=== PATIENT | female | born 1970 | race Caucasian/White ===

== ENCOUNTER 2025-01-03 10:33 | Outpatient (CLI) | payer BC, SELFPAY ==
--- NOTE | ~2025-01-03 | CT_ITS ---
CT sinus wo con Ordering provider: Marc Smith M.D. History: . J32.0 - Chronic maxillary sinusitis . Comparison: None. Technique: Thin slice Scans CT of the paranasal sinuses was performed with coronal and sagittal refor matted images. No IV contrast. . Automated exposure control and iterative reconstruction technique w ere employed. The dose-length product was 386.65 mGy-cm. Findings: NASAL SEPTUM: Mild right nasal septal deviation. OSTEOMEATAL UNITS: Bilaterally patent. NASAL TURBINATES AND NASOPHARYNX: Normal. Rhonda bullosa the left middle turbinate. PARANASAL SINUSES: Well aerated. VISUALIZED MASTOIDS: Normal as visualized. BONES: Normal. SUPERFICIAL SOFT TISSUES/VISUALIZED BRAIN PARENCHYMA: Normal. IMPRESSION: Mild right nasal septal deviation. Reviewed, dictated and finalized at location A.
== END 2025-01-03 10:34 | disposition home or self-care (01) ==
LOC: GOSHIMG 10:33
PROVIDERS: PCP Nurse Practitioner Family; Visit Provider Otolaryngology
DX: J34.2 Deviated nasal septum (principal); J32.0 Chronic maxillary sinusitis; J32.2 Chronic ethmoidal sinusitis; K21.9 Gastro-esophageal reflux disease without esophagitis; J34.89 Other specified disorders of nose and nasal sinuses; J30.2 Other seasonal allergic rhinitis
CPT/HCPCS: 70486

== ENCOUNTER 2025-02-09 11:09 | Outpatient (CLI) | payer BC, SELFPAY ==
--- NOTE | ~2025-02-09 | CT_ITS ---
EXAMINATION: CT brain wo con DATE: 02/09/2025 11:24 INDICATION: Chronic headache TECHNIQUE: Computed tomography (CT) of the head was performed without intravenous contrast. Sagittal and coronal reconstructions were performed. The mA was adjusted according to patient size. Iterative reconstruction technique was employed. The dose-length product was 564.98 mGy-cm. COMPARISON: None FINDINGS: Small old lacunar infarct versus more likely prominent perivascular space along the inferior left bas al ganglia. No acute intracranial hemorrhage, acute infarction or abnormal extra axial fluid collecti on. Ventricles are normal and symmetric. No mass/mass effect. The orbits, paranasal sinuses and masto id air cells are normal. IMPRESSION: 1. Normal head CT. Reviewed, dictated and finalized at location A. IMPRESSION: 1. Normal head CT.
== END 2025-02-09 11:10 | disposition home or self-care (01) ==
PROVIDERS: PCP Nurse Practitioner Family
DX: G43.009 Migraine without aura, not intractable, without status migrainosus (principal); G44.40 Drug-induced headache, not elsewhere classified, not intractable; G47.33 Obstructive sleep apnea (adult) (pediatric)
CPT/HCPCS: 70450

== ENCOUNTER 2025-03-10 09:50 | Outpatient (CLI) | payer BC, SELFPAY ==
--- OUTSIDE RECORDS SUMMARY | 2009-05-10 10:00 | XMS_ITS | Continuity of Care Document ---
Author Organization [facility] Address [address] [place] [address] [address] [place] [address] Phone Care Team Providers Care Line Maintenance Supervisor Name Role Phone Campo OD, Gurjit Unavailable Unavailable Procedures Procedure Date Eye Exam & Treatment Refraction Eye Exam & Treatment Refraction Advance Directives Directive Yes / No Effective Date File Name No Information Encounters Encounter Description Practice Location Reason(s) For Visit Diagnoses Date Provider Providers Copied on Encounter [facility], [address] [place] [address] [address], [place], [place], [id number], [place] tel:[phone] [facility] No Information 8-200 9 Campo OD Gurjit. [address] [facility] [address] , [address], [place], [address], [place]. tel:[phone] [facility], [address] [place] [address] [address], [place], [place], [id number], tel:[phone] [facility] [place] No Information 6-200 7 Campo OD Gurjit. [address] [facility] [address], [address], [place], [address], [place]. tel:[phone] Family History Family Member Type Diagnosis Age At Onset No Information Payers Payer name Insurance type Covered constitution party ID Authoriza tion(s) No Information Social History Type Description Quantity Date Captured Comments Sex Female Smoking Status No Information Chief Complaint And Reason For Visit No Information Reason For Referral Reason For Referral No Information History Of Present Illness Encounter Date Complaint History Of Prese nt Illness No Information Functional Status Date Functional Assessmen t No Information Instructions Date Instruction Additional Infor mation No Information Assessments Type Assessment Date No Information Patient Care Teams Name Effective Dates (start - stop) Status Members No Information
--- OUTSIDE RECORDS SUMMARY | 2025-03-10 10:00 | XMS_ITS | Clinical Summary ---
Author Organization [facility] [employer] [facility] Address [address] [facility] [place] [address] Care Team Providers Care Frame Bender Name Role Phone Robert Aguillon MD Unavailable [phone] Unknown, Provider Primary Care Provider Unavaila ble Source Comments [facility],non-owned Affiliates and Associated Physician Practices is amultiple site organization consisting of ambulatory clinics and hospital sitesin [place], [place], [place] and [place]. This disclosure is being madepursuant to the Care Everywhere program and may not contain all information available regarding this patient. Last updated 18.[facility] [employer] [facility] Allergies Active Allergy Reactions Criticality Noted Date Comments Penicillins Rash Medium 12/25/2016 Sulfa Drugs Rash Medium 12/25/2016 Medications * Be aware that medications may not be up to date on this document. Alwaysverify current medications with the patient. Fexofenadine HCl (MOUNIKA PO) Active zolpidem (AMBIEN) 10 MG tablet Take 10 mg by mouth nightly as needed for Insomnia Active multivitamin daily (THERAGRAN) tablet Take 1 Tab by mouth daily with food Active vitamin D3 (D 1000) (25 MCG) 1000 UNIT capsule Take 1 (one) capsule by mouth once daily Active fluticasone propionate (Flonase) 50 MCG/ACT nasal spray 1 as needed (50 mcg/actuat) Active metFORMIN (Glucophage) 1000 MG tablet Take 1 (one) tablet by mouth 2 times daily Active Ozempic, 2 MG/DOSE, 8 MG/3ML pen ADMINISTER 2 MG UNDER THE SKIN WEEKLY Active ferrous gluconate 324 (38 Fe) MG tablet Take 1 (one) tablet by mouth once daily Active B Qcgmyrr-U-Jspk c Acid (vitamin B complex with C) Take 1 (one) tablet by mouth once daily Active SUMAtriptan (Imitrex) 100 MG tabletIndicati ons:Chronic daily headache,Rebou nd headache,Migra ine without aura and without status migrainosus, not intractable,Si nus headache Take medication at the onset of migraine, may repeat in 2 hours, no more than 200 mg in 24 hrs 9 tablet 4 5 Active gabapentin (Neurontin) 100 MG capsuleIndicat ions:Chronic daily headache,Rebou nd headache,Migra ine without aura and without status migrainosus, not intractable,Si nus headache Take 2 (two) capsules by mouth 2 times daily 120 capsule 4 5 Active gabapentin (Neurontin) 100 MG capsuleIndicat ions:Chronic daily headache,Rebou nd headache,Migra ine without aura and without status migrainosus, not intractable,Si nus headache Take 2 (two) capsules by mouth at bedtime 60 capsule 4 5 02/12/20 25 Discontinu ed(Reorder ) Active Problems No known active problems Encounters Date Type Department Care Team Description 02/14/2025 Telephone [facility] - Neurology [address] [place] [phone] Pawel Davis APRN-LOLA Results (CT of head) 02/11/2025 Orders Only [facility] - Neurology [address] [place] [phone] Pawel Davis, WIND FIELD MANAGER-VASCULAR TECHNOLOGIST Chronic daily headache; Rebound headache; Migraine without aura and without status migrainosus, not intractable; Sinus headache 02/11/2025 Telephone [facility] - Neurology [address] [place] [phone] Pawel Davis APRN-LOLA Care Management 01/12/2025 9:00 AM CDT Office Visit [facility] [address] [place] [phone] Pawel Davis APRN-CNP Migraine without aura and without status migrainosus, not intractable (Primary Dx); Chronic daily headache; Rebound headache; Sinus headache; ROSA MARIA (obstructive sleep apnea); Tension headache 01/12/2025 Travel 01/11/2025 Travel 12/27/2024 Lab Requisition [facility] [address] [facility] [place] [phone] Estee German MD from Last 3 Months Family History Medical History Relation Name Comments Diabetes - Type 2 Father Hypertension Father Diabetes - Type 2 Mother Hypertension Mother Relation Name Status Comments Father Mother Social History Tobacco Use Types Packs/Day Years Used Date Smoking Tobacco: Never Smokeless Tobacco: Never Tobacco Cessation:Counseling Given: No Alcohol Use Standard Drinks/Week Comments Yes 0 (1 standard drink = 0.6 oz pur e alcohol) Comments No Sex and Gender Information Value Date Recorded Sex Assigned at Not on file Legal Sex 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 CABLE TOWER OPERATOR Gender Identity Not on file Sexual Orientation Not on file Last Filed Vital Signs Vital Sign Reading Time Taken Comments Blood Pressure 120/73 01/12/2025 9:05 AM CDT Pulse 77 01/12/2025 9:05 AM CDT Temperature 36.7 C (98 F) 12/25/2016 12:22 PM CDT Respiratory Rate 18 12/25/2016 12:22 PM CDT Oxygen Saturation 97% 01/12/2025 9:05 AM CDT Inhaled Oxygen Concentration - - Weight 79.4 kg (175 lb) 01/12/2025 9:05 AM CDT Height 157.5 cm (5' 2) 01/12/2025 9:05 AM CDT Body Mass Index 32.01 01/12/2025 9:05 AM CDT Plan of Treatment Upcoming Encounters Date Type Department Care Team (Late st Contact Info) Description 05/16/2025 11:00 AM CABLE TOWER OPERATOR [facility] [address] [place] [phone] Pawel Davis APRN-CNP [address] [place] [address] [place] [phone] Health Maintenance Due Date Last Done Comments COLOGUARD (AGES 45-75) - COLON CA SCREENING 1970 COLON MONITORING 1970 COLONOSCOPY - COLON CA SCREENING 1970 CT COLONOGRAPHY - COLON CA SCREENING 1970 Colorectal Cancer Screening 1970 FIT - COLON CA SCREENING 1970 FLEX SIG - COLON CA SCREENING 1970 LIPID TESTING 1970 MAMMOGRAM 1970 HIV SCREENING 1985 HEPATITIS C SCREENING 10/26/1988 DTAP/TDAP/TD VACCINES (1 - Tdap) 1989 HEPATITIS B VACCINE (1 of 3 - 19+ 3-dose series) 1989 PAP SMEAR 11/01/1991 PNEUMOCOCCAL VACCINE 50+ (1 of 1 - PCV) 2020 ZOSTER VACCINE (1 of 2) 2020 COVID-19 VACCINE (1 - 2023- season) 2024 DEPRESSION SCREENING 07/14/2024 SCREENING FOR DIABETES 01/12/2025 INFLUENZA VACCINE (#1) 2025 2, 05/01/2021, 05/01/2020, Additional history exists HIB VACCINE Aged Out No longer eligi ble based on patient's age to complete this topic HPV VACCINE Aged Out No longer eligi ble based on patient's age to complete this topic MENINGOCOCCAL (Group B) VACCINE SHARED DECISION-MAKING Aged Out No longer eligible based on patient's age to complete this topic MENINGOCOCCAL GROUPS A/C/Y/W VACCINE Aged Out No longer eligible based on patient's age to complete this topic Procedures Procedure Name Priority Date/Time Associated Diagnosis Comments DERMATOPATHOLOGY Routine 12/27/2024 8:2 5 AM CDT from Last 3 Months Results * DERMATOPATHOLOGY (12/27/2024 8:25 AM CDT) Case Report Dermatopathology Report Case: [id number] Authorizing Provider: Estee German MD Collected: 12/27/2024 08:25 AM Ordering Location: [facility] - Received: 12/27/2024 11:02 AM DermPath Lab Pathologist: Mike Baig MD Specimens: A) - Skin, right post shoulder B) - Skin, left forearm 1:35 PM CDT DERMATOPATHOLOGY LABORATORY Final Diagnosis Specimen A. SKIN, right post shoulder: SUPERFICIAL PERIVASCULAR LYMPHOCYTIC INFILTRATE WITH EOSINOPHILS (L27.0) EPIDERMAL NECROSIS SUGGESTIVE OF EXCORIATION (L98.499) (see microscopic description and comment) Specimen B. SKIN, left forearm: SUPERFICIAL PERIVASCULAR LYMPHOCYTIC INFILTRATE WITH EOSINOPHILS (L27.0) EPIDERMAL NECROSIS SUGGESTIVE OF EXCORIATION (L98.499) (see microscopic description and comment) 1:35 PM CDT DERMATOPATHOLOGY LABORATORY at 1335 CDT Clinical History A-B: Eczema vs Drug Reaction vs Other 1:35 PM CDT DERMATOPATHOLOGY LABORATORY Gross Description Specimen A: Received is one formalin filled container labeled with the patient's name and designated right post shoulder. The specimen consists of a punch biopsy measuring 3x3x5 mm. Jar 0. Specimen B: Received is one formalin filled container labeled with the patient's name and designated left forearm. The specimen consists of a punch biopsy measuring 3x3x5 mm. Jar 0. 1:35 PM CDT DERMATOPATHOLOGY LABORATORY Microscopic Description Specimen A. SKIN, right post shoulder: Sections show a perivascular and interstitial infiltrate including lymphocytes and eosinophils. There are no prominent epidermal or interface changes. The epidermis is focally necrotic and covered with a scale-crust. There is fibrin at the base. Additional deeper sections were obtained and reviewed. COMMENT: These histological findings are often seen in hypersensitivity reactions to an ingested allergen. Specimen B. SKIN, left forearm: Sections show a perivascular and interstitial infiltrate including lymphocytes and eosinophils. There are no prominent epidermal or interface changes. The epidermis is focally necrotic and covered with a scale-crust. There is fibrin at the base. Additional deeper sections were obtained and reviewed. COMMENT: These histological findings are often seen in hypersensitivity reactions to an ingested allergen. 1:35 PM CDT DERMATOPATHOLOGY LABORATORY Disclaimer An external and internal positive and negative controls are appropriate for the histochemical, immunohistochemical and immunofluorescence stain(s) in this case (if any), except where stated explicitly. The performance characteristics of the stain(s) cited in this report were developed and its performance characteristic determined by the Dermatopathology Laboratory at [facility], directed by Dr. Aamir Baig. These tests need not be, and therefore are not, approved by the [place] Food and Drug Administration. The tests are used for clinical purposes. Billing Codes Specimen Charges Stain Charges 60547 96940 1 1 5 1:35 PM CDT DERMATOPATHOLOGY LABORATORY Embedded Images 5 1:35 PM CDT DERMATOPATHOLOGY LABORATORY Pathology/Cytology TISSUE SPECIMEN FROM SKIN / Unknown 12/27/2024 8:25 AM CDT 12/27/2024 11:02 AM CDT Miscellaneous samples (specimen) TISSUE SPECIMEN FROM SKIN / Unknown 12/27/2024 8:25 AM CDT 12/27/2024 11:02 AM CDT Estee German MD LAB - PATHOLOGY/CYTOLOGY OR DERABLES Final Result DERMATOPATHOLOGY LABORATORY [facility] - Department of Dermatology [facility] Medicine [address] [place] [address], [address]rd [address] [phone] from Last 3 Months Insurance ANTHEM ANTHEM Care Teams Frame Bender Relationship Specialty Start Date End Date Unknown, Provider PCP - General 01/12/25 Robert Aguillon MD [address] [place] [phone] Internal Medicine 12/25/16
--- OUTSIDE RECORDS SUMMARY | 2025-03-10 10:00 | XMS_ITS | Encounter Summary ---
Author Organization [facility] Address [address] [facility] [place] [address] Care Team Providers Care Engineering Analyst Name Role Phone Robert Aguillon MD Unavailable [phone] Unknown, Provider Primary Care Provider Unavaila ble Encounter Details Date Type Department Care Team (Late Contact Info) Description 12/27/2024 Lab Requisition [facility] [address] [facility] [place] [phone] Estee German MD [address] [facility] [address] [place] [address] Social History Tobacco Use Types Packs/Day Years Used Date Smoking Tobacco: Never Smokeless Tobacco: Never Comments No Sex and Gender Information Value Date Recorded Sex Assigned at Not on file Legal Sex 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 SOLAR/RENEWABLE ENERGY SALES Gender Identity Not on file Sexual Orientation Not on file documented as of this encounter Plan of Treatment Upcoming Encounters Date Type Department Care Team (Late Contact Info) Description 05/16/2025 11:00 AM SOLAR/RENEWABLE ENERGY SALES Office Visit [facility] - Neurology [address] [facility] [place] [phone] Pawel Davis, MEDICAL CODING AUDITOR-VEHICLE MODIFICATION TECHNICIAN [facility] [facility] [address] [place] [phone] documented as of this encounter Procedures Procedure Name Priority Date/Time Associated Diagnosis Comments DERMATOPATHOLOGY Routine 12/27/2024 8:25 AM CDT documented in this encounter Results * DERMATOPATHOLOGY (12/27/2024 8:25 AM CDT) Case Report Dermatopathology Report Case: [id number] Authorizing Provider: Estee German MD Collected: 12/27/2024 08:25 AM Ordering Location: [facility] - Received: 12/27/2024 11:02 AM DermPath [...] in hypersensitivity reactions to an ingested allergen. 5 1:35 PM CDT DERMATOPATHOLOGY LABORATORY Disclaimer An external and internal positive and negative controls are appropriate for the histochemical, immunohistochemical and immunofluorescence stain(s) in this case (if any), except where stated explicitly. The performance characteristics of the stain(s) cited in this report were developed and its performance characteristic determined by the Dermatopathology Laboratory at [facility], directed by Dr. Aamir Baig. These tests need not be, and therefore are not, approved by the [place] Food and Drug Administration. The tests are used for clinical purposes. Billing Codes Specimen Charges Stain Charges 23490 81155 1 1 5 1:35 PM CDT DERMATOPATHOLOGY LABORATORY Embedded Images 1:35 PM CDT DERMATOPATHOLOGY LABORATORY Pathology/Cytology TISSUE SPECIMEN FROM SKIN / Unknown 12/27/2024 8:25 AM CDT 12/27/2024 11:02 AM CDT Miscellaneous samples (specimen) TISSUE SPECIMEN FROM SKIN / Unknown 12/27/2024 8:25 AM CDT 12/27/2024 11:02 AM CDT Estee German MD LAB - PATHOLOGY/CYTOLOGY OR DERABLES Final Result DERMATOPATHOLOGY LABORATORY [facility] Department of Dermatology [facility] Specialized Medicine [address] [place] [address], [address] [phone] documented in this encounter Visit Diagnoses Not on filedocumented in this encounter Care Teams Engineering Analyst Relationship Specialty Start Date End Date Unknown, Provider PCP - General 01/12/25 Robert Aguillon MD [address] [place] [address] Internal Medicine 12/25/16 documented as of this encounter
--- NOTE | 2025-03-10 10:04 | ECG_ITS ---
Test Date: 2025-03-10 10:11:30 Measurements Intervals [place] Rate: 69 P: 58 ND: 147 QRS: 77 QRSD: 88 T: 53 QT: 372 QTc: 399 Interpretive Statements SINUS RHYTHM MINIMAL Q WAVES- INFERIOR LEADS BORDERLINE ECG No previous ECG available for comparison Electronically Signed On 03-10-2025 10:52:08 CDT by Luis Simmons D.O.
== END 2025-03-10 09:51 | disposition home or self-care (01) ==
LOC: ANHCARD 09:52
PROVIDERS: PCP Nurse Practitioner Family; Referring Provider Otolaryngology; Visit Provider Nurse Practitioner Family
DX: Z01.818 Encounter for other preprocedural examination (principal)
CPT/HCPCS: 93005

== ENCOUNTER 2025-04-13 16:51 | Outpatient (CLI) | payer BC, SELFPAY ==
[2025-04-13 17:37] LABS: Anion Gap 9 mmol/L (4-12); Blood Urea Nitrogen 23 mg/dL (7-17); Calcium 8.7 mg/dL (8.4-10.2); Carbon Dioxide 25 mmol/L (22-30); Chloride 103 mmol/L (98-107); Estimated Glomerular Filt Rate > 60; Glucose 82 mg/dL (65-110); Potassium 4.1 mmol/L (3.4-5.0); Sodium 137 mmol/L (137-145)
== END 2025-04-13 16:52 | disposition home or self-care (01) ==
LOC: ANHLAB 16:52
PROVIDERS: PCP Nurse Practitioner Family; Visit Provider Anesthesiology
DX: E11.9 Type 2 diabetes mellitus without complications (principal); Z01.818 Encounter for other preprocedural examination
CPT/HCPCS: 36415; 80048

== ENCOUNTER 2025-04-18 00:19 | Day surgery (SDC) | payer BC, SELFPAY ==
--- OUTSIDE RECORDS SUMMARY | 2009-05-10 10:00 | XMS_ITS | Continuity of Care Document ---
Author Organization [facility] Address [address] [place] [address] [address] [place] [address] Phone Care Team Providers Care Oracle Programmer Name Role Phone Campo OD, Gurjit Unavailable Unavailable Procedures Procedure Date Eye Exam & Treatment Refraction Eye Exam & Treatment Refraction Advance Directives Directive Yes / No Effective Date File Name No Information Encounters Encounter Description Practice Location Reason(s) For Visit Diagnoses Date Provider Providers Copied on Encounter [facility], [address] [place] [address] [address], [place], [place], [id number], [place] tel:[phone] [facility] No Information 8-200 9 Campo OD Gurjit. [address] [facility] [place] , [address], [place], [address], [place]. tel:[phone] [facility], [address] [place] [address] [address], [place], [place], [id number], tel:[phone] [facility] [place] No Information 6-200 7 Campo OD Gurjit. [address] [facility], [address], [place], [address], [place]. tel:[phone] Family History Family Member Type Diagnosis Age At Onset No Information Payers Payer name Insurance type Covered democrat ID Authoriza tion(s) No Information Social History [...]
[2025-04-13 14:24] VITALS: BMI 30.6
--- NOTE | 2025-04-13 14:38 | PC.NURSE ---
[facility] has started construction of its new state of the art ER which will open Spring 2026. With this, we anticipate parking may be a challenge for some our surgical patients and families. Parking spaces are limited but are available for all Surgical, obstetrics, and ER patients sharing this lot. If you arrive and find you are having a hard time finding a parking space, please note that we understand the challenges, please drive around the hospital and park near Hospital Entrance 1. When you enter this entrance, you can ask a volunteer to direct or take you back to the surgical waiting area to check in. We appreciate everyone?s understanding of these expected challenges while we build for your future. Report to the Outpatient Waiting Room, entrance under the green pavilion located off [address], at time _1030_ on date _[id number]_. Planned Procedure Time: _1230_.? Time changes happen often and if your time is changed the preop area will call you the afternoon before. - You and your visitor will be asked to self-screen and do not enter if you have any COVID symptoms. Please call surgeon if you need to reschedule. - A mask is optional within the hospital at this time. Patients may have clear liquids (water, carbonated beverages, clear teas, apple juice) until 3 hours prior to surgery with a maximum of 20 ounces. - No food from midnight until time of surgery and no smoking, or chewing tobacco (or any form of nicotine). No chewing gum, candy or mints. Take only the following medications with a SIP of water on the morning of surgery: __Gabapentin DO NOT STOP ANY OF YOUR OTHER PRESCRIPTION MEDICATIONS PRIOR TO SURGERY EXCEPT THE FOLLOWING Hold all vitamins and supplements for 3 days per anesthesiologist. Medications to discontinue per physician Date to take last dose Please no make-up, nail croatian, hairspray, perfume, deodorant, or body powder the day of surgery.? No jewelry (including any body piercings) or valuables the day of surgery, leave them at home.? Please take a shower or bath the night before, or the morning of, surgery with an antibacterial soap.? Wear comfortable, loose fitting clothing.? - Jewelry must be removed prior to entering the operating room.? Rings and piercings that are not removed may be cut off. - The hospital will not accept responsibility for valuables.? - Please leave all valuables, including medications, at home the day of surgery. If you are going home after surgery, a licensed taxi cab driver must drive you home.? - NO public transportation without another adult if you receive anesthesia. - We recommend that an adult stay with you for 24 hours following discharge. - We also recommend that you do not drive, make important decision, drink alcoholic beverages, or take any drugs that were not prescribed by your health care provider for at least 24 hours after your discharge time. Follow any additional instructions given to you from your surgeon. Telephone instructions given to __Diane__and asked if any additional questions and then verbalized understanding. Patient advised to call surgeon office or pre surgery nurse liaison [phone] if any additional questions.
--- NOTE | 2025-04-17 15:34 | PM.IMHP ---
H&P: HPI History of Present Illness Date/Time: 04/17/25 15:34 Chief Complaint: septal deviation turbinate hypertrophy Narrative: planned surgical procedure Review of Systems Review of Systems: All systems reviewed & are unremarkable except as noted in HPI and below PMFSH Past Medical History Medical History Depression Migraines Diabetes Hypertension Rheumatoid arthritis Hysterectomy planned 2022 Cholecystectomy planned 2001 IBS (irritable bowel syndrome) HTN (hypertension) Migraines Diabetes Arthritis Allergies Surgical History Surgical History History of hysterectomy 07/31/2022 [place] teeth removed Hx of cholecystectomy Family History Family History Mother Hypertension Family history of diabetes mellitus in first degree relative Heart disease Cancer Father Cerebrovascular accident Cancer Diabetes mellitus Heart disease Family history of diabetes mellitus in first degree relative Hypertension Grandparent Cerebrovascular accident Family history of coronary artery disease Hypertension Depression Heart disease Sibling Diabetes mellitus Hypertension Father Diabetes mellitus Hypertension Cerebrovascular accident Mother Diabetes mellitus Hypertension Family history of malignant neoplasm of breast in first degree relative Grandparent Hypertension Social History Social History Social History: Caffeine-tea Smoking status: Never smoker Second hand tobacco smoke exposure: No Alcohol intake: current Substance use: never Substance use type: does not use Do You Feel Safe in your Home?: Yes Lack of Transportation: No Lack of Food: Never True Current Housing: I Have Housing Concerned About Future Housing: No Difficulty Paying Gas/Electric Bills: No Difficulty Paying for Meds: No Currently Unemployed: No Education: Master's Degree or Higher Difficulty w/ Childcare or Family Care: No Living arrangements: with family Occupation/Education: occupation Gender identity (if verbalized by the patient): Female Sexual Orientation (if Verbalized by the Patient): Straight or Heterosexual Spiritual care concerns: No Agree to blood products: Yes Meds Home Medications and Allergies Home Medications ?Medication ?Instructions ?Recorded ?Confirmed ?Type docusate sodium 100 mg capsule 100 mg PO BID 07/19/22 04/13/25 History (Dulcolax Stool Softener (docusate)) fexofenadine 60 mg tablet (Zulma 60 mg PO DAILY 01/20/23 04/13/25 History Allergy) ferrous sulfate 325 mg (65 mg 325 mg PO DAILY 03/17/24 04/13/25 History iron) tablet sumatriptan succinate 50 mg tablet 50 mg PO .COMPLEX #14 tabs 03/17/24 04/13/25 Rx (Imitrex) cholecalciferol (vitamin D3) 10 10 mcg PO DAILY 07/06/24 04/13/25 History mcg (400 unit) capsule ondansetron 4 mg disintegrating 4 mg PO Q8H PRN nausea and 07/06/24 04/13/25 Rx tablet vomiting #14 tabs magnesium glycinate 350 mg BYMOUTH BID 09/27/24 04/13/25 History fexofenadine 180 mg tablet 180 mg PO DAILY 12/13/24 04/13/25 History (Zulma Allergy) guaifenesin 600 mg tablet, 600 mg PO BID 12/13/24 04/13/25 History extended release 12 hr (Mucinex) azelastine 137 mcg (0.1 %) nasal 1 - 2 spray intranasal BID 01/07/25 04/13/25 Rx spray chronic seasonal allergic rhinitis #30 mL fluticasone propionate 50 2 spray intranasal DAILY #16 grams 01/11/25 04/13/25 Rx mcg/actuation nasal spray,suspension (Flonase Allergy Relief) gabapentin 100 mg capsule 200 mg PO Q12H 02/24/25 04/13/25 History linaclotide 145 mcg capsule 145 mcg PO DAILY #30 caps 02/24/25 04/13/25 Rx (Linzess) metformin 1,000 mg tablet See Rx Instructions .Route 02/24/25 04/13/25 Rx .COMPLEX #180 tabs mupirocin 2 % topical ointment 1 applic topical BID #22 grams 02/24/25 04/13/25 Rx (Centany) zolpidem 10 mg tablet (Ambien) 10 mg PO QHS PRN sleep #30 tabs 02/24/25 04/13/25 Rx semaglutide 2 mg/dose (8 mg/3 mL) 2 mg (0.75 mL) subcut WEEKLY #9 mL 03/07/25 04/13/25 Rx subcutaneous pen injector (Ozempic) omeprazole 40 mg capsule,delayed 40 mg PO DAILY laryngopharyngeal 04/13/25 04/13/25 Rx release reflux #30 caps vitamin B complex (Complex B-100 1 tablet PO DAILY 04/13/25 04/13/25 History tablet,extended release) Allergies Allergy/AdvReac Type Severity Reaction Status Date / Time bupropion Allergy Severe Rash Verified 04/13/25 14:17 Penicillins Allergy Unknown Hives Verified 04/13/25 14:17 Sulfa (Sulfonamide Allergy Unknown Hives Verified 04/13/25 14:17 Antibiotics) sulfanilamide Allergy Unknown Redness of Verified 04/13/25 14:17 Skin lisinopril AdvReac Severe Rash Verified 04/13/25 14:17 Exam Narrative: septal deviation turbinate hypertrophy Assessment and Plan Assessment and plan (1) Nasal septal deviation: Code(s): J34.2 - Deviated nasal septum Status: Acute Assessment and Plan: plan OR endoscopic assisted septoplasty and inferior turbinate reduction bilaterally with outfracture. Total operative time about 1 hour. Anesthesia general. Risks were discussed bleeding infection damage to surrounding structures. Damage to any structure above the clavicles by myself. Damage to any structure during the induction and maintenance of anesthesia including vocal cord paralysis. Septal perforation. They will resolve symptoms. Change in cosmesis. Need for further procedures. Postoperative bleeding infection . CSF leak brain brain damage. 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 (2) Hypertrophy of both inferior nasal turbinates: Code(s): J34.3 - Hypertrophy of nasal turbinates Status: Acute (3) Nasal obstruction: Code(s): J34.89 - Other specified disorders of nose and nasal sinuses Status: Acute (4) Nasal congestion: Code(s): R09.81 - Nasal congestion Status: Acute
[2025-04-18] VITALS (9 sets, daily range): BP systolic 104–147; BP diastolic 59–80; PULSE 86–94; RESP 12–16; TEMP 36.4–37; O2SAT 95–99; BMI 32.1
--- OUTSIDE RECORDS SUMMARY | 2025-04-18 00:22 | XMS_ITS | Clinical Summary ---
Author Organization [facility] Address [address] [place] [address] Care Team Providers Care Esthetician/Owner Name Role Phone Robert Aguillon MD Unavailable [phone] Maurice Alvarado MD Primary Care Provider [phone] Source Comments [facility],non-owned Affiliates and Associated Physician Practices is amultiple site organization consisting of ambulatory clinics and hospital sitesin [place], [place], [place] and [place]. This disclosure is being madepursuant to the Care Everywhere program and may not contain all information available regarding this patient. Last updated 18.[facility] Allergies Active Allergy Reactions Criticality Noted Date [...] tablet by mouth once daily Active B Zactbtc-X-Tcxp c Acid (vitamin B complex with C) Take 1 (one) tablet by mouth once daily Active gabapentin (Neurontin) 300 MG capsuleIndicat ions:Sinus headache,Rebou nd headache,ROSA MARIA (obstructive sleep apnea),Tension headache,Migra ine without aura and without status migrainosus, not intractable,Ch ronic daily headache Take 1 (one) capsule by mouth 2 times daily 60 capsule 5 5 Active SUMAtriptan (Imitrex) 100 MG tabletIndicati ons:Sinus headache,Rebou nd headache,Migra ine without aura and without status migrainosus, not intractable,Ch ronic daily headache Take medication at the onset of migraine, may repeat in 2 hours, no more than 200 mg in 24 hrs 9 tablet 4 5 Active SUMAtriptan (Imitrex) 100 MG tabletIndicati ons:Chronic daily headache,Rebou nd headache,Migra ine without aura and without status migrainosus, not intractable,Si nus headache Take medication at the onset of migraine, may repeat in 2 hours, no more than 200 mg in 24 hrs 9 tablet 4 5 04/14/20 25 Discontinu ed(Reorder ) gabapentin (Neurontin) 100 MG capsuleIndicat ions:Chronic daily headache,Rebou nd headache,Migra ine without aura and without status migrainosus, not intractable,Si nus headache Take 2 (two) capsules by mouth 2 times daily 120 capsule 4 5 04/14/20 25 Discontinu ed(Dose Adjustment ) Active Problems Problem Noted Date Diagnosed Date Benign essential HTN 04/14/2025 Depression 04/14/2025 Diabetes mellitus 04/14/2025 Overview (04/14/2025): Phreesia 10/19/2024 H/O seasonal allergies 04/14/2025 Hypertension 04/14/2025 Overview (04/14/2025): Phreesia 10/19/2024 Interstitial cystitis 04/14/2025 Overview (04/14/2025): Normal UA Irritable bowel syndrome (IBS) 04/14/2025 Overview (04/14/2025): Phreesia 10/19/2024 Migraines 04/14/2025 Nocturia 04/14/2025 Sleep apnea 04/14/2025 Overview (04/14/2025): Phreesia 10/19/2024 Encounters Date Type Department Care Team Description 04/14/2025 3:30 PM CDT Office Visit [facility] - Neurology [address] [place] [phone] Pawel Davis APRN-LOLA Chronic daily headache (Primary Dx); Sinus headache; Rebound headache; ROSA MARIA (obstructive sleep apnea); Tension headache; Migraine without aura and without status migrainosus, not intractable 04/14/2025 Travel 04/13/2025 Telephone [facility] [address] [place] [phone] Pawel Davis BULK SAUSAGE CASING TIER OFF-TRACE EVIDENCE TECHNICIAN Care Management 02/14/2025 Telephone [facility] [address] [place] [phone] Pawel Davis APRN-TRACE EVIDENCE TECHNICIAN Results (CT of head) 02/11/2025 Orders Only [facility] [address] [place] [phone] Pawel Davis BULK SAUSAGE CASING TIER OFF-LOLA Chronic daily headache; Rebound headache; Migraine without aura and without status migrainosus, not intractable; Sinus headache 02/11/2025 Telephone [facility] [address] [place] [phone] Pawel Davis BULK SAUSAGE CASING TIER OFF-TRACE EVIDENCE TECHNICIAN Care Management from Last 3 Months Immunizations Immunization Administration Dates Next Due FLU VACCINE TRI IIV3 SPLIT P F IM (FLUVIRIN) 05/09/2016,06/20/2015,05/10/2015 INFLUENZA VACCINE 05/13/2014, 3,06/09/2012,2010 INFLUENZA VACCINE, CELL CULT URE, QUADR. (FLUCELVAX QUADRIVALENT; 6MO+) (CCIIV4) 05/20/2022 INFLUENZA VACCINE, QUADR. (F LUZONE; FLULAVAL; FLUARIX; AFLURIA QUADRIVALENT; 6MO+), 0.5 ML (IIV4) 05/01/2021,05/01/2020,04/15/2019,2017,05/07/2017 Family History Medical History Relation Name Comments Diabetes - Type 2 Father Hypertension Father Diabetes - Type 2 Mother Hypertension Mother Relation Name Status Comments Father Mother Social History Tobacco Use Types Packs/Day Years Used Date Smoking Tobacco: Never Smokeless Tobacco: Never Alcohol Use Standard Drinks/Week Comments Yes 0 (1 standard drink = 0.6 oz pur e alcohol) Comments No Sex and Gender Information Value Date Recorded Sex Assigned at Not on file Legal Sex 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 GRIEF COUNSELOR Gender Identity Not on file Sexual Orientation Not on file Last Filed Vital Signs Vital Sign Reading Time Taken Comments Blood Pressure 124/73 04/14/2025 3:23 PM CDT Pulse 74 04/14/2025 3:23 PM CDT Temperature 36.7 C (98 F) 12/25/2016 12:22 PM CDT Respiratory Rate 18 12/25/2016 12:2 2 PM CDT Oxygen Saturation 97% 04/14/2025 3:23 PM CDT Inhaled Oxygen Concentration - - Weight 80.6 kg (177 lb 11.2 oz) 04/14/2025 3:23 PM CDT Height 157.5 cm (5' 2) 04/14/2025 3:23 PM CDT Body Mass Index 32.5 04/14/2025 3:23 PM CDT Plan of Treatment Upcoming Encounters Date Type Department Care Team (Late st Contact Info) Description 08/15/2025 1:00 PM GRIEF COUNSELOR Office Visit [facility] - Neurology [address] [place] [address], [place] [phone] Pawel Davis, BULK SAUSAGE CASING TIER OFF-TRACE EVIDENCE TECHNICIAN [address] [place] [address] [place] [phone] Health Maintenance Due Date Last Done Comments COLOGUARD (AGES 45-75) - COLON CA SCREENING 1970 COLON MONITORING 1970 COLONOSCOPY - COLON CA SCREENING 1970 CT COLONOGRAPHY - COLON CA SCREENING 1970 Colorectal Cancer Screening 1970 FIT - COLON CA SCREENING 1970 FLEX SIG - COLON CA SCREENING 1970 MAMMOGRAM 1970 HIV SCREENING 1985 HEPATITIS C SCREENING 10/26/1988 DIABETES-SERUM CREATININE 1988 DTAP/TDAP/TD VACCINES (1 - Tdap) 1989 HEPATITIS B VACCINE (1 of 3 - 19+ 3-dose series) 1989 PNEUMOCOCCAL VACCINE 50+ (1 of 2 - PCV) 1989 PAP SMEAR 11/01/1991 DIABETES-STATIN 2010 ZOSTER VACCINE (1 of 2) 2020 DEPRESSION SCREENING 07/14/2024 DIABETES - URINE PROTEIN SCREENING 07/14/2024 COVID-19 VACCINE (1 - season) 2025 INFLUENZA VACCINE (#1) 2025 2, 05/01/2021, 05/01/2020, Additional history exists DIABETES RETINOPATHY SCREENING 04/14/2025 DIABETES-FOOT EXAM WITH MONOFILAMENT 04/14/2025 DIABETES-HGB A1C 04/14/2025 HIB VACCINE Aged Out No longer eligi [...] on patient's age to complete this topic Insurance ANDRES ANTHEM Care Teams Esthetician/Owner Relationship Specialty Start Date End Date Maurice Alvarado MD [address] [place] [address] PCP - General Family Medicine 04/14/25 Robert Aguillon MD [address] [place] [phone] Internal Medicine 12/25/16
--- OUTSIDE RECORDS SUMMARY | 2025-04-18 00:22 | XMS_ITS | Encounter Summary ---
Author Organization [facility] Address [address] [place] [address] Care Team Providers Care Glue Machine Operator Name Role Phone Robert Aguillon MD Unavailable [phone] Unknown, Provider Primary Care Provider Unavaila Maurice Barkley MD Primary Care Provider [phone] Reason for Visit * Reason Onset Date Comments Care Management 04/13/2025 Encounter Details Date Type Department Care Team (Late st Contact Info) Description 04/13/2025 Telephone [facility] Neurology [address] [place] [address], [facility] [place] [phone] Pawel Davis, GLUING PRESSMAN-ARCHITECTURAL SUPERINTENDENT [address] [place] [address] [place] [address] Care Management Social History Tobacco Use Types Packs/Day Years Used Date Smoking Tobacco: Never Smokeless Tobacco: Never Alcohol Use Standard Drinks/Week Comments Yes 0 (1 standard drink = 0.6 oz pur e alcohol) Comments No Sex and Gender Information Value Date Recorded Sex Assigned at Not on file Legal Sex 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 SCHOOL BUS ATTENDANT Gender Identity Not on file Sexual Orientation Not on file documented as of this encounter Miscellaneous Notes * Telephone Encounter - Harrison Stokes - 04/13/2025 1:39 PM CDT Patient called wanting to know if she could get an increase of her Gabapentin medication. She states that she been having an increasing amount of headaches. Please advise if theres anything I can do to help. Thanks Raad documented in this encounter Plan of Treatment Upcoming Encounters Date Type Department Care Team (Late st Contact Info) Description 08/15/2025 1:00 PM SCHOOL BUS ATTENDANT Office Visit [facility] - Neurology [address] [facility], [place] [address] Pawel Davis, GLUING PRESSMAN-ARCHITECTURAL SUPERINTENDENT [address] [place] [address] [place] [phone] documented as of this encounter Visit Diagnoses Not on filedocumented in this encounter Care Teams Glue Machine Operator Relationship Specialty Start Date End Date Unknown, Provider PCP - General 01/12/25 04/13/25 Maurice Alvarado MD [address] [place] [address] PCP - General Family Medicine 04/14/25 Robert Aguillon MD [address] [place] [phone] Internal Medicine 12/25/16 documented as of this encounter
[2025-04-18 11:23] LABS: Hematocrit 40.9 % (37.0-47.0); Hemoglobin 13.6 g/dL (12.0-15.0)
--- NOTE | 2025-04-18 11:41 | WPDHPUPDATE1 ---
History and Physical Update Update Date/Time: 04/18/25 11:41 History and Physical has been reviewed, including an updated exam of the patient. There are NO changes in the patient's condition. Risks, benefits, and alternatives have been discussed and questions answered. Patient agrees to proceed with procedure.
[2025-04-18] MEDS: ACETAMINOPHEN 500 MG TABLET 1000 MG PO (12:00)
[2025-04-18] MEDS: LACTATED RINGERS 1,000 ML 30 ML IV CONT (12:00)
[2025-04-18] MEDS: SCOPOLAMINE 1 MG PATCH 1 PATCH TRANSDERM (12:47)
[2025-04-18] MEDS: ceFAZolin 2 GM in SODIUM CHLORIDE 0.9% IV 50 ML 100 ML IVPB (12:54)
[2025-04-18] MEDS: LIDO 1%/EPINEPHRINE 1:100,000 50 ML VIAL INFILTRATE (13:13)
--- NOTE | 2025-04-18 13:15 | WPDANESEPPF ---
Anes - Initial Pre Proc Eval Procedure: Operation Date: 04/18/25 12:30 Proposed Procedures p Image Guided Submucous Resection of Inferior Turbinate, Partial or Complete Bilateral, Fracture Nasal Inferior Turbinate, Bilateral - Bennett Escudero MD s Septoplasty - Bennett Escudero MD Date/Time: 04/18/25 13:15 Surgeon: Bennett Escudero MD Pre Op Diagnosis: Dev Nasal Septum, Hypertrophy nasal turbinates Patient Data Age: 54 Gender: F Height: 1.57 m Weight: 79.8 kg Last Vital Signs Temp 37.0 C 04/18/25 10:30 Pulse 90 04/18/25 10:30 Resp 16 04/18/25 10:30 BP 142/65 H 04/18/25 10:30 Pulse Ox 98 04/18/25 10:30 Allergies Allergy/AdvReac Type Severity Reaction Status Date / Time bupropion Allergy Severe Rash Verified 04/18/25 12:11 Penicillins Allergy Unknown Hives Verified 04/18/25 12:11 Sulfa (Sulfonamide Allergy Unknown Hives Verified 04/18/25 12:11 Antibiotics) sulfanilamide Allergy Unknown Redness of Verified 04/18/25 12:11 Skin lisinopril AdvReac Severe Rash Verified 04/18/25 12:11 Home Medications ?Medication ?Instructions ?Recorded ?Confirmed ?Type docusate sodium 100 mg capsule 100 mg PO BID 07/19/22 04/18/25 History (Dulcolax Stool Softener (docusate)) fexofenadine 60 mg tablet (Zulma 60 mg PO DAILY 01/20/23 04/18/25 History Allergy) ferrous sulfate 325 mg (65 mg 325 mg PO DAILY 03/17/24 04/18/25 History iron) tablet sumatriptan succinate 50 mg tablet 50 mg PO .COMPLEX #14 tabs 03/17/24 04/13/25 Rx (Imitrex) cholecalciferol (vitamin D3) 10 10 mcg PO DAILY 07/06/24 04/18/25 History mcg (400 unit) capsule ondansetron 4 mg disintegrating 4 mg PO Q8H PRN nausea and 07/06/24 04/13/25 Rx tablet vomiting #14 tabs magnesium glycinate 350 mg BYMOUTH BID 09/27/24 04/18/25 History fexofenadine 180 mg tablet 180 mg PO DAILY 12/13/24 04/18/25 History (Zulma Allergy) guaifenesin 600 mg tablet, 600 mg PO BID 12/13/24 04/13/25 History extended release 12 hr (Mucinex) azelastine 137 mcg (0.1 %) nasal 1 - 2 spray intranasal BID 01/07/25 04/13/25 Rx spray chronic seasonal allergic rhinitis #30 mL fluticasone propionate 50 2 spray intranasal DAILY #16 grams 01/11/25 04/13/25 Rx mcg/actuation nasal spray,suspension (Flonase Allergy Relief) gabapentin 100 mg capsule 200 mg PO Q12H 02/24/25 04/18/25 History linaclotide 145 mcg capsule 145 mcg PO DAILY #30 caps 02/24/25 04/18/25 Rx (Linzess) metformin 1,000 mg tablet See Rx Instructions .Route 02/24/25 04/18/25 Rx .COMPLEX #180 tabs mupirocin 2 % topical ointment 1 applic topical BID #22 grams 02/24/25 04/13/25 Rx (Centany) zolpidem 10 mg tablet (Ambien) 10 mg PO QHS PRN sleep #30 tabs 02/24/25 04/13/25 Rx semaglutide 2 mg/dose (8 mg/3 mL) 2 mg (0.75 mL) subcut WEEKLY #9 mL 03/07/25 04/18/25 Rx subcutaneous pen injector (Ozempic) omeprazole 40 mg capsule,delayed 40 mg PO DAILY laryngopharyngeal 04/13/25 04/18/25 Rx release reflux #30 caps vitamin B complex (Complex B-100 1 tablet PO DAILY 04/13/25 04/18/25 History tablet,extended release) Laboratory Tests 04/18/25 04/18/25 10:49 11:23 Hgb 13.6 g/dL (12.0-15.0) Hct 40.9 % (37.0-47.0) POC Capillary Glucose 90 mg/dl (65-105) Patient hx anesthesia problems: none Family hx anesthesia problems: none Results Review: All pre-operative results and documents have been reviewed as part of the pre-operative evaluation. [facility] Past Medical History Medical History Depression Migraines Diabetes Hypertension Rheumatoid arthritis Hysterectomy planned 2022 Cholecystectomy planned 2001 IBS (irritable bowel syndrome) HTN (hypertension) Migraines Diabetes Arthritis Allergies Surgical History Surgical History History of hysterectomy 07/31/2022 [place] teeth removed Hx of cholecystectomy Family History Family History Mother Hypertension Family history of diabetes mellitus in first degree relative Heart disease Cancer Father Cerebrovascular accident Cancer Diabetes mellitus Heart disease Family history of diabetes mellitus in first degree relative Hypertension Grandparent Cerebrovascular accident Family history of coronary artery disease Hypertension Depression Heart disease Sibling Diabetes mellitus Hypertension Father Diabetes mellitus Hypertension Cerebrovascular accident Mother Diabetes mellitus Hypertension Family history of malignant neoplasm of breast in first degree relative Grandparent Hypertension Social History Social History Social History: Caffeine-tea Smoking status: Never smoker Second hand tobacco smoke exposure: No Alcohol intake: never Substance use: never Substance use type: does not use Do You Feel Safe in your Home?: Yes Lack of Transportation: No Lack of Food: Never True Current Housing: I Have Housing Concerned About Future Housing: No Difficulty Paying Gas/Electric Bills: No Difficulty Paying for Meds: No Currently Unemployed: No Education: Master's Degree or Higher Difficulty w/ Childcare or Family Care: No Living arrangements: with family Occupation/Education: occupation Gender identity (if verbalized by the patient): Female Sexual Orientation (if Verbalized by the Patient): Straight or Heterosexual Spiritual care concerns: No Agree to blood products: Yes Anes - Eval Final PreProcedure Day of Procedure 04/18/25 13:15 Patient weight: obese Heart: regular rate and rhythm Lungs: clear to auscultation Airway: Mallampati scale class II Neurological: alert and oriented Last oral intake: >/= 8 hours ASA classification: III Emergent: no Anesthetic plan: proceed Anesthesia type and monitoring: general ETT and standard monitoring Results Review: All pre-operative results and documents have been reviewed as part of the pre-operative evaluation. Informed Consent: The patient's anesthetic plan and its attendant risks and benefits were discussed with the patient/family/POA. Questions were solicited and answers provided to the satisfaction of the patient/family/POA.
--- NOTE | 2025-04-18 13:32 | SUR.OPER ---
13:30 Dr Escudero spoke with patient's contact (Jossie Crabtree-Mother)regarding consent to remove kyaw bullosa to help improve patient's breathing. Consent obtained.
[2025-04-18] MEDS: MUPIROCIN 2% OINT 22 GM TUBE 1 APPLIC EACH NARE (13:59)
--- NOTE | 2025-04-18 14:30 | P.OP_ITS ---
Procedure Note - Detailed Date of Procedure 04/18/25 Pre-op Diagnosis Dev Nasal Septum, Hypertrophy nasal turbinates, left kyaw bullosa Post-op Diagnosis Same Procedure Performed 1. Endoscopic assisted septoplasty 2. Bilateral inferior turbinate reduction with outfracture 3. Left excision kyaw bullosa Surgeon Bennett Escudero MD Anesthesia General Indications See above Findings Large left kyaw bullosa which was missed on preoperative imaging. Moderately deviated rightward nasal septum. Three tears on the right mucosa none on the left. Large turbinates well reduced. Description of Procedure Patient identified consent verified the preoperative holding area. Patient brought to the operating. Time-out performed. General anesthesia induced endotracheal tube secured airway. Patient prepped draped position procedure confirmed 2nd time-out performed. 0 degree endoscope utilized at this time is noted the patient had a very large left kyaw bullosa. This was confirmed by intraoperative review of the patient's imaging. Called the patient's operative power of lighting equipment operator and asked if I could excise the left kyaw bullosa explained the risks and benefits in great detail. Permission was granted given that this was a breathing airway surgery. Total 15 cc 1% lidocaine 1 100,000 parts epinephrine injected the bilateral nasal septum inferior turbinate left kyaw bullosa. Left kyaw bullosa excised with straight through cut up-biting through cut and sickle blade. 3 mm sorry tri cut microdebrider also utilized to excise the remnant portions of the kyaw. Medial aspect was left intact. Fift een blade utilized to make a left Clive incision left nasal septal flap elevated 7 Armenian suction caudal no tears. Right nasal septal flap elevated with caudal and 7 Armenian suction. Three tears with no concomitant tears on the left side. Deviated septum removed with osteotome Smooth Mckenzie forceps Jessica forceps BT. Septal flaps irrigated out. Closed anteriorly using 4 interrupted 5 0 fast gut sutures. Inferior turbinates stab anteriorly with a 15 blade. They were reduced in the submucosal plane using microdebrider with inferior turbinate blade. No tears. They were then outfractured using Naples elevator. The mulberry tips were cauterized using Bovie suction electrocautery setting of 15. Total blood loss about 20 cc. Patient tolerated the procedure well. No complications. Colindres splints were then placed left ensured to be lateral to the kyaw bullosa middle turbinate. Sutured anteriorly using a mattressed nylon 3-0 suture. No active bleeding at the end of the procedure. Care the patient given back to Anesthesiology. I performed all dictated portions of procedure no complications. Patient taken to PACU. Estimated Blood Loss 20 Drains No Packing No Pathology None sent Complications No immediate complications Condition Stable Disposition PACU [facility] Billing Surgery - Charge Forward: Surgery Billing
== END 2025-04-18 16:12 | disposition home or self-care (01) ==
PROVIDERS: Anesthesiology; PCP Nurse Practitioner Family; Visit Provider Otolaryngology
PROC: (CPT 31240; principal; 2025-04-18 12:30)
PROC: (CPT 30520; 2025-04-18 12:30)
DX: J34.2 Deviated nasal septum (principal); J34.3 Hypertrophy of nasal turbinates; J34.89 Other specified disorders of nose and nasal sinuses; E11.9 Type 2 diabetes mellitus without complications; E66.9 Obesity, unspecified; Z68.32 Body mass index [BMI] 32.0-32.9, adult
CPT/HCPCS: 31240; 30520; 30140; 36415; 82948; 85014; 85018; J0690; A9270; J0330; J1100; J2003; J2004; J2250; J2405; J2704; J3010; J7050; J7120

== ENCOUNTER 2025-05-11 10:08 | Outpatient (CLI) | payer BC, SELFPAY ==
--- NOTE | ~2025-05-11 | MM_ITS ---
EXAMINATION: MM screening [facility] BI w saul HISTORY: Screening TECHNIQUE: Craniocaudal and mediolateral oblique 3-D tomosynthesis images were obtained and synthetic 2-D images were generated. CAD analysis was submitted and interpreted. COMPARISON: Comparison to multiple prior studies sequentially, with oldest reviewed study dated 07/02/2018. BREAST PARENCHYMAL COMPOSITION: Not dense: There are scattered areas of fibroglandular density. FINDINGS: There is no evidence of suspicious mass, calcification, or architectural distortion to suggest malignancy in either breast. There has been no suspicious interval change. IMPRESSION: 1. No mammographic evidence of malignancy. 2. Recommend routine screening mammography in one year. BI-RADS Category 1: Negative Reviewed, dictated and finalized at location B.
--- OUTSIDE RECORDS SUMMARY | 2025-05-11 11:22 | XMS_ITS | Clinical Summary ---
Author Organization [facility] [employer] Address [address] [facility] [place] [address] Care Team Providers Care Ad Writer Name Role Phone Robert Aguillon MD Unavailable [phone] Maurice Alvarado MD Primary Care Provider [phone] Source Comments [facility],non-owned Affiliates and Associated Physician Practices is amultiple site organization consisting of ambulatory clinics and hospital sitesin [place], [place], [place]. This disclosure is being madepursuant to the Care Everywhere program and may not contain all information available regarding this patient. Last updated 18.[facility] [employer] Allergies Active Allergy Reactions Criticality Noted Date [...] tablet by mouth once daily Active B Oanwipu-D-Brvy c Acid (vitamin B complex with C) [...] Office Visit [facility] - Neurology [address] [place] [phone] Pawel Davis APRN-LOLA Chronic daily headache (Primary Dx); Sinus headache; Rebound headache; ROSA MARIA (obstructive sleep apnea); Tension headache; Migraine without aura and without status migrainosus, not intractable 04/14/2025 Travel 04/13/2025 Telephone [facility] [address] [place] [phone] Pawel Davis VIDEO EDITING INTERN-PROJECT DESIGNER Care Management 02/14/2025 Telephone [facility] [address] [place] [phone] Pawel Davis APRN-PROJECT DESIGNER Results (CT of head) 02/11/2025 Orders Only [facility] [address] [place] [phone] Pawel Davis VIDEO EDITING INTERN-LOLA Chronic daily headache; Rebound headache; Migraine without aura and without status migrainosus, not intractable; Sinus headache 02/11/2025 Telephone [facility] [address] [place] [phone] Pawel Davis VIDEO EDITING INTERN-PROJECT DESIGNER Care Management from Last 3 Months Immunizations [...] on file Legal Sex 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 Gender Identity Not on file Sexual Orientation [...] st Contact Info) Description 08/15/2025 1:00 PM CRIME SCENE EVIDENCE TECHNICIAN Office Visit [facility] - Neurology [address] [place] [address], [place] [phone] Pawel Davis, VIDEO EDITING INTERN-PROJECT DESIGNER [address] [place] [address] [place] [phone] Health Maintenance Due Date Last Done Comments [...] this topic Insurance ANDRES ANTHEM Care Teams Ad Writer Relationship Specialty Start Date End Date Maurice Alvarado MD [address] [place] [address] PCP - General Family Medicine 04/14/25 Robert Aguillon MD [address] [place] [address] Internal Medicine 12/25/16
--- OUTSIDE RECORDS SUMMARY | 2025-05-11 11:22 | XMS_ITS | Encounter Summary ---
Author Organization [facility] Address [address] [place] [address] Care Team Providers Care M48/M60 Tank Driver Name Role Phone Robert Aguillon MD Unavailable [phone] Unknown, Provider Primary Care Provider Unavaila Maurice Barkley MD Primary Care Provider [phone] Encounter Details Date Type Department Care Team (Late Contact Info) Description 12/27/2024 Lab Requisition [facility] Lab [address] [facility], [place] [phone] Estee German MD [facility] [facility] [address] [place] [address] Social History Tobacco Use Types Packs/Day Years Used Date Smoking Tobacco: Never Smokeless Tobacco: Never Comments No Sex and Gender Information Value Date Recorded Sex Assigned at Not on file Legal Sex 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 Gender Identity Not on file Sexual Orientation Not on file documented as of this encounter Plan of Treatment Upcoming Encounters Date Type Department Care Team (Late Contact Info) Description 08/15/2025 1:00 PM DEHYDROGENATION CONVERTER OPERATOR Office Visit [facility] - Neurology [address] [facility] [place] [phone] Pawel Davis, BUTTON SPINDLER-COGNOS CONSULTANT [facility] [address]L [place] [phone] documented as of this encounter Procedures Procedure Name Priority Date/Time Associated Diagnosis Comments DERMATOPATHOLOGY Routine 12/27/2024 8:25 AM CDT documented in this encounter Results * DERMATOPATHOLOGY (12/27/2024 8:25 AM CDT) Case Report Dermatopathology Report Case: [id number] Authorizing Provider: Estee German MD Collected: 12/27/2024 08:25 AM Ordering Location: [facility] - Received: 12/27/2024 11:02 AM [...] characteristic determined by the Dermatopathology Laboratory at [facility], directed by Dr. Aamir Baig. These tests need not be, and therefore are not, approved by the [place] Food and Drug Administration. The tests are used for clinical purposes. Billing Codes Specimen Charges Stain Charges 22779 47224 1 1 1:35 PM CDT DERMATOPATHOLOGY LABORATORY Embedded Images 1:35 PM CDT DERMATOPATHOLOGY LABORATORY Pathology/Cytology TISSUE SPECIMEN FROM SKIN / Unknown 12/27/2024 8:25 AM CDT 12/27/2024 11:02 AM CDT Miscellaneous samples (specimen) TISSUE SPECIMEN FROM SKIN / Unknown 12/27/2024 8:25 AM CDT 12/27/2024 11:02 AM CDT Estee German MD LAB - PATHOLOGY/CYTOLOGY OR DERABLES Final Result DERMATOPATHOLOGY LABORATORY [facility] - Department of Dermatology [address], [address] [phone] documented in this encounter Visit Diagnoses Not on filedocumented in this encounter Care Teams M48/M60 Tank Driver Relationship Specialty Start Date End Date Unknown, Provider PCP - General 01/12/25 04/13/25 Maurice Alvarado MD [address] [place] [address] PCP - General Family Medicine 04/14/25 Robert Aguillon MD [address] [place] [phone] Internal Medicine 12/25/16 documented as of this encounter
--- OUTSIDE RECORDS SUMMARY | 2025-05-11 11:23 | XMS_ITS | Encounter Summary ---
Author Organization [facility] Address [address] [place] [address] Care Team Providers Care Solderer Assembler Name Role Phone Robert Aguillon MD Unavailable [phone] Unknown, Provider Primary Care Provider Unavaila Maurice Barkley MD Primary Care Provider [phone] Reason for Visit * Reason Onset Date Comments Care Management 04/13/2025 Encounter Details Date Type Department Care Team (Late st Contact Info) Description 04/13/2025 Telephone [facility] - Neurology [address] [place] [address], [facility] [place] [address] Pawel Davis, MEDICAL ASSISTANT SECRETARY-METAL POLISHER [address] [place] [address] [place] [address] Care Management Social History Tobacco Use Types Packs/Day Years Used Date Smoking Tobacco: Never Smokeless Tobacco: Never Alcohol Use Standard Drinks/Week Comments Yes 0 (1 standard drink = 0.6 oz pur e alcohol) Comments No Sex and Gender Information Value Date Recorded Sex Assigned at Not on file Legal Sex 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 BEEF GRINDER Gender Identity Not on file Sexual Orientation [...] st Contact Info) Description 08/15/2025 1:00 PM BEEF GRINDER Office Visit [facility] - Neurology [address] [facility], [place] [address] Pawel Davis, MEDICAL ASSISTANT SECRETARY-METAL POLISHER [address] [place] [address] [place] [phone] documented as of this encounter Visit Diagnoses Not on filedocumented in this encounter Care Teams Solderer Assembler Relationship Specialty Start Date End Date Unknown, Provider PCP - General 01/12/25 04/13/25 Maurice Alvarado MD [address] [place] [address] PCP - General Family Medicine 04/14/25 Robert Aguillon MD [address] [place] [phone] Internal Medicine 12/25/16 documented as of this encounter
== END 2025-05-11 10:09 | disposition home or self-care (01) ==
LOC: ANHFOHIMG 10:11
PROVIDERS: PCP Nurse Practitioner Family; Visit Provider Family Medicine
DX: Z12.31 Encounter for screening mammogram for malignant neoplasm of breast (principal)
CPT/HCPCS: 77063; 77067